=== PATIENT | female | born 1980 | race Hispanic/Latino ===

== ENCOUNTER 2024-10-03 21:13 | Emergency (ER) | payer SELFPAY ==
[~2024-10-03] VITALS: Ht 152.4 cm; Wt 77.1 kg
[~2024-10-03 21:13] MED LIST: CEFDINIR300 MG PO; FIORICET 50-301 EACH PO; ONDANSETRON ODT4 MG PO; ULTRAM 50MG50 MG PO
[2024-10-03 21:19] VITALS: PULSE 99; RESP 17; TEMP 97.2
[2024-10-03] MEDS ORDERED: REGLAN10 MG PO (21:35)
[2024-10-03 22:18] VITALS: BP 149/64; O2SAT 99
== END 2024-10-03 21:41 | disposition home or self-care (01) ==
LOC: FSED 21:21
DX: G43.909 Migraine, unspecified, not intractable, without status migrainosus (principal); M54.9 Dorsalgia, unspecified; G89.29 Other chronic pain
CPT/HCPCS: 99283